=== PATIENT | male | born 1995 | race Hispanic/Latino ===

== ENCOUNTER 2020-10-31 23:51 | Emergency (ER) | payer SELFPAY ==
[2020-11-01 00:40] LABS: Absolute Lymphocytes (CBC) 2.2 K/uL (0.7-4.9); Basophils % 0.4 % (0-1.3); Hematocrit 43.1 % (39.6-49.0); Lymphocytes % 34.2 % (15.3-44.8); MPV 8.8 fL (7.6-11.3); RBC Red Blood Cell Count 4.82 M/uL (4.33-5.43)
[2020-11-01 00:45] LABS: Protime INR 1.15
[2020-11-01 00:56] LABS: ALT/SGPT 16 U/L (12-78); AST/SGOT 14 U/L (15-37); Albumin 4.5 g/dL (3.4-5.0); Alkaline Phosphatase 101 U/L (45-117); BUN Blood Urea Nitrogen 11 mg/dL (7-18); Bicarbonate 25 mmol/L (21-32); Bilirubin Direct 0.1 mg/dL (0-0.2); Bilirubin Total 0.7 mg/dL (0.2-1.0); Glucose Level 99 mg/dL (74-106); Magnesium 2.3 mg/dL (1.8-2.4); NT PRO-BNP 101 pg/mL (<125); Potassium 3.7 mmol/L (3.5-5.1); Protein, Total 8.8 g/dL (6.4-8.2); Sodium Level 139 mmol/L (136-145); Troponin (Emerg Dept Use Only) < 0.02 ng/mL (0.0-0.045)
--- NOTE | 2020-11-01 02:54 | ER ---
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 Pt reports taking "ecstacy" yesterday, denies other illicit drug use or ETOH ingestion. EMS reports "anxious". 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 Coronavirus screen: Client denies travel out of the [place] in the last 14 days. Client presents with at least one sign or symptom that may indicate coronavirus-19. Provider contacted for isolation considerations. Ebola Screen: No symptoms or risks identified at this time. Initial Sepsis Screen: Does the patient meet any 2 criteria? RR > 20 per min. HR > 90 bpm. Yes Does the patient have a suspected source of infection? No. Patient's initial sepsis screen is negative. Risk Assessment: Do you want to hurt yourself or someone else? Patient reports no desire to harm self or others. Onset of symptoms was October 31, 2020 at 23:00. 00:09 Method Of Arrival: EMS ad5 00:09 Acuity: SHERRELL 2 ad5 Triage Assessment: 00:13 General: Appears distressed, uncomfortable, Behavior is cooperative, anxious, restless. ad5 Pain: Complains of pain in anterior aspect of left upper chest. Cardiovascular: Reports chest pain, shortness of breath. Historical: - Allergies: 00:13 No Known Allergies; ad5 - Home Meds: 00:13 unknown blood thinner [Active]; ad5 - PMHx: 00:13 Unknown arterial dx; ad5 - Immunization history:: Adult Immunizations unknown. - Social history:: Smoking status: Patient denies any tobacco usage or history of. Patient uses alcohol, street drugs. Screenin:15 Abuse screen: Denies threats or abuse. Denies injuries from another. Nutritional ad5 screening: No deficits noted. Tuberculosis screening: No symptoms or risk factors identified. Fall Risk None identified. Assessment: 00:14 General: Appears distressed, uncomfortable, Behavior is cooperative, anxious, restless. ad5 Pain: Complains of pain in anterior aspect of left upper chest Pain does not radiate. Pain began suddenly, 1 hour ago. Neuro: Level of Consciousness is awake, alert, obeys commands, Oriented to person, place, time, situation, Appropriate for age [employer] Job Titles are equal bilaterally Moves all extremities. Speech is normal, Facial symmetry appears normal, Intact. Cardiovascular: Reports chest pain, shortness of breath, Heart tones present Capillary refill < 3 seconds JVD is absent Patient's skin is warm and dry. Pulses are all present. Rhythm is regular Chest pain is described as severe, quality is sharp, is located in left anterior chest wall began 1 hour prior to arrival episodes are continuous. Respiratory: Reports shortness of breath cough that is productive, Airway is patent Trachea midline Respiratory effort is even, unlabored, Respiratory pattern is regular, tachypnea. GI: No deficits noted. : No deficits noted. EENT: No deficits noted. Derm: No deficits noted. Skin is pink, warm \\T\\ dry. Musculoskeletal: No deficits noted. 01:13 Reassessment: Patient appears in no apparent distress at this time. Patient and/or ad5 family updated on plan of care and expected duration. Pain level reassessed. Patient is alert, oriented x 3, equal unlabored respirations, skin warm/dry/pink. Pt resting comfortably in stretcher, resp even/unlabored at this time. HRR on CM. NAD noted, will continue to monitor. PD remains at bedside. 02:46 Reassessment: Patient appears in no apparent distress at this time. Patient and/or ad5 family updated on plan of care and expected duration. Pain level reassessed. Patient is alert, oriented x 3, equal unlabored respirations, skin warm/dry/pink. 03:09 Reassessment: Patient appears in no apparent distress at this time. Patient is alert, rr5 oriented x 3, equal unlabored respirations, skin warm/dry/pink. discharge instruction given and explained without complaints made. Vital Signs: 00:09 BP 126 / 86; Pulse 108; Resp 26; Temp 98.7; Pulse Ox 100% on R/A; Weight 74.84 kg; ad5 Height 5 ft. 10 in. (177.80 cm); Pain 7/10; 00:16 Pulse 85; Resp 23 S; ad5 01:14 BP 112 / 54; Pulse 80; Resp 20; Pulse Ox 99% on 2 lpm NC; ad5 02:46 BP 107 / 47; Pulse 68; Resp 16 S; Pulse Ox 99% ; ad5 03:09 BP 110 / 62; Pulse 65; Resp 19; Pulse Ox 98% ; rr5 00:09 Body Mass Index 23.67 (74.84 kg, 177.80 cm) ad5 ED Course: 00:09 Patient arrived in ED. ad5 00:09 Nura Campos is Primary Nurse. ad5 00:12 Triage completed. ad5 00:15 Arm band placed on right wrist. rr5 00:16 Patient has correct armband on for positive identification. Bed in low position. Call ad5 light in reach. Side rails up X2. Adult w/ patient. monitor worker on. Pulse ox on. NIBP on. Sitter at bedside. Door closed. Noise minimized. Warm blanket given. Head of bed lowered. 00:18 Sal Henao MD is Attending Physician. [facility] 00:24 No provider procedures requiring assistance completed. Inserted saline lock: 18 gauge ad5 in right antecubital area, using aseptic technique. Blood collected. 00:42 XRAY Chest (1 view) In Process Unspecified. EDMS 01:00 Oxygen administration via nasal cannula \\T\\ 2L/min. rr5 03:10 IV discontinued, intact, bleeding controlled, No redness/swelling at site. Pressure rr5 dressing applied. 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 Demonstrated understanding of instructions, follow-up care. 03:11 Patient left the ED. 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 EMS reports "anxious" ad5
--- NOTE | 2020-11-01 02:54 | EDPHYS ---
Physician Documentation [facility] Name: Job Umanzor Age: 25 yrs Sex: Male : 1995 Arrival Date: 11/01/2020 Time: 00:09 Bed 4 Private MD: ED Physician Sal Henao HPI: 11/01 01:06 This 25 yrs old Male presents to ER via EMS with complaints of Chest Pain. [facility] 01:07 The patient or guardian reports chest pain that is located primarily in the anterior mh7 chest wall, left. The pain does not radiate. 01:07 Associated signs and symptoms: Pertinent negatives: abdominal pain, cough, diaphoresis, mh7 dizziness, headache, lower extremity pain, lower extremity swelling, lightheadedness, nausea, near syncope, palpitations, recent travel, shortness of breath, syncope, vomiting. The chest pain is described as sharp. Duration: The patient or guardian reports a single episode, that is still ongoing, and unchanged. Modifying factors: The symptoms are alleviated by nothing. the symptoms are aggravated by movement, palpation of area. Severity of pain: At its worst the pain was moderate today, in the emergency department the pain is unchanged. EMS care prior to arrival includes: aspirin, nitroglycerin. Historical: - Allergies: 00:13 No Known Allergies; ad5 - Home Meds: 00:13 unknown blood thinner [Active]; ad5 - PMHx: 00:13 Unknown arterial dx; ad5 - Immunization history:: Adult Immunizations unknown. - Social history:: Smoking status: Patient denies any tobacco usage or history of. Patient uses alcohol, street drugs. ROS: 01:07 Constitutional: Negative for fever, chills, and weight loss, Eyes: Negative for injury, mh7 pain, redness, and discharge, ENT: Negative for injury, pain, and discharge, Neck: Negative for injury, pain, and swelling, Respiratory: Negative for shortness of breath, cough, wheezing, and pleuritic chest pain, Abdomen/GI: Negative for abdominal pain, nausea, vomiting, diarrhea, and constipation, Back: Negative for injury and pain, : Negative for injury, bleeding, discharge, and swelling, MS/Extremity: Negative for injury and deformity, Skin: Negative for injury, rash, and discoloration, Neuro: Negative for headache, weakness, numbness, tingling, and seizure. 01:07 Allergy/Immunology: Negative for hives, rash, and allergies, Endocrine: Negative for neck swelling, polydipsia, polyuria, polyphagia, and marked weight changes, Hematologic/Lymphatic: Negative for swollen nodes, abnormal bleeding, and unusual bruising. 01:07 Psych: Positive for drug dependence. Exam: 01:07 Head/Face: Normocephalic, atraumatic. Eyes: Pupils equal round and reactive to light, mh7 extra-ocular motions intact. Lids and lashes normal. Conjunctiva and sclera are non-icteric and not injected. Cornea within normal limits. Periorbital areas with no swelling, redness, or edema. Neck: Trachea midline, no thyromegaly or masses palpated, and no cervical lymphadenopathy. Supple, full range of motion without nuchal rigidity, or vertebral point tenderness. No Meningismus. 01:07 Cardiovascular: Regular rate and rhythm with a normal S1 and S2. No gallops, murmurs, or rubs. Normal PMI, no JVD. No pulse deficits. Respiratory: Lungs have equal breath sounds bilaterally, clear to auscultation and percussion. No rales, rhonchi or wheezes noted. No increased work of breathing, no retractions or nasal flaring. Abdomen/GI: Soft, non-tender, with normal bowel sounds. No distension or tympany. No guarding or rebound. No evidence of tenderness throughout. Back: No spinal tenderness. No costovertebral tenderness. Full range of motion. Skin: Warm, dry with normal turgor. Normal color with no rashes, no lesions, and no evidence of cellulitis. MS/ Extremity: Pulses equal, no cyanosis. Neurovascular intact. Full, normal range of motion. Neuro: Awake and alert, GCS 15, oriented to person, place, time, and situation. Cranial nerves II-XII grossly intact. Motor strength 5/5 in all extremities. Sensory grossly intact. Cerebellar exam normal. Normal gait. Psych: Awake, alert, with orientation to person, place and time. Behavior, mood, and affect are within normal limits. 01:07 Constitutional: The patient appears in no acute distress, alert, awake, anxious. 01:07 Chest/axilla: Inspection: normal, Palpation: tenderness, that is moderate, of the anterior aspect of left upper chest, that totally reproduces the patient's complaints, Axilla: are normal, Lymph nodes: lymphadenopathy is not appreciated. Vital Signs: 00:09 BP 126 / 86; Pulse 108; Resp 26; Temp 98.7; Pulse Ox 100% on R/A; Weight 74.84 kg; ad5 Height 5 ft. 10 in. (177.80 cm); Pain 7/10; 00:16 Pulse 85; Resp 23 S; ad5 01:14 BP 112 / 54; Pulse 80; Resp 20; Pulse Ox 99% on 2 lpm NC; ad5 02:46 BP 107 / 47; Pulse 68; Resp 16 S; Pulse Ox 99% ; ad5 03:09 BP 110 / 62; Pulse 65; Resp 19; Pulse Ox 98% ; rr5 00:09 Body Mass Index 23.67 (74.84 kg, 177.80 cm) ad5 MDM: 02:50 Differential diagnosis: acute myocardial infarction, acute pericarditis, anxiety, mh7 coronary artery disease chest wall pain, congestive heart failure costochondritis, myocarditis, pericarditis, pneumonia, pneumothorax, Substance Abuse. HEART Score: History: Slightly Suspicious (0), ECG: Normal (0), Age: < or = 45 years (0), Risk Factors: No Risk Factors Known (0), Troponin: < or = 1 x Normal Limit (0), Total Score = 0. Data reviewed: vital signs, nurses notes, EMS record, lab test result(s), cardiac enzymes, CBC, electrolytes, EKG, radiologic studies, plain films. Data interpreted: Pulse oximetry: on room air is 99 %. Interpretation: normal. Counseling: I had a detailed discussion with the patient and/or guardian regarding: the historical points, exam findings, and any diagnostic results supporting the discharge/admit diagnosis, lab results, radiology results, the need for outpatient follow up, to return to the emergency department if symptoms worsen or persist or if there are any questions or concerns that arise at home. 02:53 Patient medically screened. mh7 11/01 00:22 Order name: Basic Metabolic Panel ad5 11/01 00:22 Order name: CBC with Diff ad5 11/01 00:22 Order name: LFT's ad5 11/01 00:22 Order name: Magnesium ad5 11/01 00:22 Order name: NT PRO-BNP; Complete Time: 02:19 ad5 11/01 00:22 Order name: PT-INR; Complete Time: 02: ad5 11/01 00:22 Order name: Troponin (emerg Dept Use Only); Complete Time: 02: ad5 11/01 00:22 Order name: XRAY Chest (1 view) ad5 11/01 00:23 Order name: Basic Metabolic Panel; Complete Time: 02:19 [facility] 11/01 00:23 Order name: CBC with Automated Diff; Complete Time: 02: [facility] 11/01 00:23 Order name: Liver (Hepatic) Function; Complete Time: 02: [facility] 11/01 00:23 Order name: Magnesium; Complete Time: 02: [facility] 11/01 00:28 Order name: CPK; Complete Time: 02: [facility] 11/01 00:22 Order name: EKG; Complete Time: 00: ad5 11/01 00:22 Order name: Cardiac monitoring; Complete Time: 00:24 ad5 11/01 00:22 Order name: EKG - Nurse/Tech; Complete Time: 03: ad5 11/01 00:23 Order name: IV Saline Lock; Complete Time: 00: ad5 11/01 00:23 Order name: Labs collected and sent; Complete Time: 00: ad5 11/01 00:23 Order name: O2 Per Protocol; Complete Time: 03: ad5 11/01 00:23 Order name: O2 Sat Monitoring; Complete Time: 00:24 ad5 Administered Medications: 03:06 Not Given (pt with decreased RR noted by this RN, aware): Ativan (LORazepam) 1 mg ad5 IVP once Disposition: 11/01/20 02:53 Discharged to Home. Impression: Chest pain, unspecified, Substance Abuse. - Condition is Stable. - Discharge Instructions: Hallucinogen Use Disorder-MDMA, Nonspecific Chest Pain, [id number]. - Medication Reconciliation Form, Thank You Letter, Antibiotic Education, Prescription Opioid Use form. - Follow up: Private Physician; When: 1 - 2 days; Reason: Worsening of condition, Recheck today's complaints, Continuance of care, Re-evaluation by your physician. - Problem is new. - Symptoms are resolved. Signatures: Dispatcher [employer] Jovany Saleem RN RN rr5 Sal Henao MD MD mh7 Campos, Nura ad5 Corrections: (The following items were deleted from the chart) 03:11 02:53 11/01/2020 02:53 Discharged to Home. Impression: Chest pain, unspecified; rr5 Substance Abuse. Condition is Stable. Forms are Medication Reconciliation Form, Thank You Letter, Antibiotic Education, Prescription Opioid Use. Follow up: Private Physician; When: 1 - 2 days; Reason: Worsening of condition, Recheck today's complaints, Continuance of care, Re-evaluation by your physician. Problem is new. Symptoms are resolved. mh7
[2020-11-01 03:21] VITALS: TEMP 98.7
[2020-11-01 03:28] VITALS: BP 110/62; O2SAT 98
--- NOTE | 2020-11-01 07:46 | EKG ---
Test Date: 2020-11-01 Test Time: 00:31:08 Rn Team Leader: CLEO MEASUREMENT RESULTS: Intervals: Rate: 86 MD: 150 QRSD: 100 QT: 378 QTc: 452 [place]: P: 65 MD: 150 QRS: 90 T: 75 INTERPRETIVE STATEMENTS: Normal sinus rhythm Rightward axis Incomplete right bundle branch block Borderline ECG No previous ECG available for comparison Electronically Signed On 11-01-20 07:45:59 CDT by Clayton Noble
--- NOTE | 2020-11-01 08:24 | RAD REPORT ---
EXAM DESCRIPTION: Daryl Single View11/01/2020 12:44 am CLINICAL HISTORY: Chest pain COMPARISON: none FINDINGS: The lungs appear clear of acute infiltrate. The heart is normal size IMPRESSION: No acute abnormalities displayed
== END 2020-11-01 03:11 | disposition home or self-care (01) ==
LOC: ER 23:51
DX: R07.9 Chest pain, unspecified (principal); F19.10 Other psychoactive substance abuse, uncomplicated
CPT/HCPCS: 36415; 71045; 80048; 80076; 82550; 83735; 83880; 84484; 85025; 85610; 93005; 99285

== ENCOUNTER → 2023-07-03 | Emergency (ER) | payer SELFPAY ==
[~2023-07-03] MED LIST: LORazepam 2 MG/ML VIAL ONE; NA CHLORIDE 0.9% 1,000 ML ONE; ONDANSETRON 4 MG/2 ML VIAL ONE; POTASSIUM 25 MEQ EFFERV TAB ONE
[2023-07-03 09:42] LABS: Absolute Lymphocytes (CBC) 2.5 K/uL (0.7-4.9); Hematocrit 43.4 % (39.6-49.0); Lymphocytes % 16.3 % (15.3-44.8); MCV 90.6 fL (80-100); MPV 8.6 fL (7.6-11.3); Platelets 327 thou/uL (152-406); RBC Red Blood Cell Count 4.79 M/uL (4.33-5.43)
[2023-07-03 09:51] LABS: AST/SGOT 23 U/L (15-37); Alkaline Phosphatase 102 U/L (45-117); BUN Blood Urea Nitrogen 18 mg/dL (7-18); Bicarbonate 19 mEq/L (21-32); Bilirubin Direct 0.2 mg/dL (0-0.2); Bilirubin Indirect, Calculated 0.3 mg/dL (0.2-0.8); Bilirubin Total 0.5 mg/dL (0.2-1.0); Glomerular Filtration Rate 118 ml/min (=/>90); Glucose Level 83 mg/dL (74-106); Magnesium 2.2 mg/dL (1.6-2.4); Potassium 3.1 mEq/L (3.5-5.1); Protein, Total 8.8 g/dL (6.4-8.2); Sodium Level 138 mEq/L (136-145)
[2023-07-03 09:57] LABS: Troponin High Sensitivity < 3.0 pg/mL (<58.9)
[2023-07-03 10:02] LABS: ALT/SGPT 26 U/L (16-61)
--- NOTE | 2023-07-03 10:10 | RAD REPORT ---
EXAM DESCRIPTION: RAD - Chest Single View - 07/03/2023 10:00 am CLINICAL HISTORY: CHEST PAIN COMPARISON: Chest Single View dated 11/01/2020 FINDINGS: Lines: None. Lungs: No evidence of edema or pneumonia. Pleural: No significant pleural effusions or pneumothorax. Cardiac: The heart size is within normal limits. Mediastinum: Within normal limits. Bones: No acute fractures. Other: None IMPRESSION: No acute cardiopulmonary disease.
--- NOTE | 2023-07-03 10:48 | EDPHYS ---
Physician Documentation [facility] Name: Job Umanzor Age: 28 yrs Sex: Male : 1995 Arrival Date: 07/03/2023 Time: 09:04 Bed 13 Private MD: ED Physician Afshin Glover HPI: 07/03 09:12 This 28 yrs old Male presents to ER via Unassigned with complaints of Anxiety, sb4 Chest Pain, Numbness Of Hand. 09:12 patient states that he drank alcohol last night in excess for the first time in a few sb4 years. he woke up this morning "hungover" also experiencing chest pain and numbness of his hands bilaterally. he denies any drug use. states that he is on blood thinners for "small arteries" but cannot tell me the name. Historical: - Allergies: 09:20 No Known Allergies; hb - Home Meds: 09:20 Unknown blood thinner [Active]; hb - PMHx: 09:20 Unknown arterial dx; hb - PSHx: 09:20 None; hb - Immunization history:: Adult Immunizations up to date. - Social history:: Smoking status: Patient reports the use of cigarette tobacco products. ROS: 09:12 Constitutional: Negative for fever, chills, and weight loss, sb4 09:12 Cardiovascular: Positive for chest pain, 09:12 Abdomen/GI: Positive for nausea and vomiting, 09:12 Neuro: Positive for numbness, 09:12 Psych: Positive for anxiety, 09:12 All other systems are negative, Exam: 09:12 Head/Face: Normocephalic, atraumatic. Eyes: Extra-ocular motions intact. Periorbital sb4 areas with no swelling, redness, or edema. ENT: Mucous membranes moist. Cardiovascular: Regular rate and rhythm with a normal S1 and S2. Respiratory: Lungs have equal breath sounds bilaterally, clear to auscultation and percussion. No rales, rhonchi or wheezes noted. No increased work of breathing, no retractions or nasal flaring. Abdomen/GI: Soft, non-tender, no distension. Skin: Warm, dry with normal turgor. Normal color with no rashes, no lesions, and no evidence of cellulitis. MS/ Extremity: Pulses equal, no cyanosis. Neurovascular intact. Full, normal range of motion. Neuro: Awake and alert, GCS 15, oriented to person, place, time, and situation. Motor strength 5/5 in all extremities. Sensory grossly intact. 09:12 Constitutional: The patient appears alert, awake, anxious, restless, Vital Signs: 09:07 BP 127 / 68; Pulse 88; Resp 19; Temp 97.9(TE); Pulse Ox 100% on R/A; Pain 3/10; hb 09:22 Weight 79.38 kg; Height 5 ft. 6 in. ; mb9 10:08 BP 102 / 61; Pulse 85; Resp 18; Pulse Ox 100% on R/A; mb9 09:22 Body Mass Index 28.25 (79.38 kg, 167.64 cm) mb9 09:07 Pain Scale: Adult hb MDM: 09:06 Patient medically screened. sb4 09:12 Differential diagnosis: anxiety attack, volume depletion, pancreatitis, sb4 gastroenteritis, electrolyte abnormality. 10:47 Data reviewed: vital signs, nurses notes, lab test result(s), EKG, radiologic studies, sb4 and as a result, I will discharge patient. Counseling: I had a detailed discussion with the patient and/or guardian regarding the historical points, exam findings, and any diagnostic results supporting the discharge/admit diagnosis, lab results, radiology results, to return to the emergency department if symptoms worsen or persist or if there are any questions or concerns that arise at home. 07/03 09:11 Order name: Basic Metabolic Panel; Complete Time: 10:05 sb07/03 09:11 Order name: CBC with Diff; Complete Time: 09:51 4 07/03 09:11 Order name: D-Dimer; Complete Time: 09:47 07/03 09:11 Order name: LFT's; Complete Time: 10:05 sb4 07/03 09:11 Order name: Magnesium; Complete Time: 10:05 4 07/03 09:11 Order name: Troponin HS; Complete Time: 10:05 07/03 09:11 Order name: ETOH Level; Complete Time: 10:17 sb4 07/03 09:14 Order name: Lipase; Complete Time: 09:47 sb4 07/03 09:11 Order name: XRAY Chest (1 view); Complete Time: 10:12 4 07/03 09:11 Order name: EKG; Complete Time: 09:07/03 09:11 Order name: Cardiac monitoring; Complete Time: 07/03 09:11 Order name: EKG - Nurse/Tech; Complete Time: 07/03 09:11 Order name: IV Saline Lock; Complete Time: 07/03 09:11 Order name: Labs collected and sent; Complete Time: 07/03 09:11 Order name: O2 Per Protocol; Complete Time: 07/03 09:11 Order name: O2 Sat Monitoring; Complete Time: EC:15 Rate is 87 beats/min. Rhythm is regular, Normal Sinus Rhythm. QRS [place] is Normal. NE sb4 interval is normal at 150 msec. QRS interval is normal at 110 msec. QT interval is normal at 398 msec. No Q waves. T waves are Normal. No ST changes noted. Clinical impression: Normal ECG. Interpreted by me. Reviewed by me. Administered Medications: 09:21 Drug: NS 0.9% IV 1000 ml IV at 1 bolus Per protocol; 1000 mL bolus Route: IV; Rate: 1 mb9 bolus; Site: right forearm; 10:26 Follow up: Response: No adverse reaction; IV Status: Completed infusion mb9 09:21 Drug: Ativan IVP 1 mg IVP once Route: IVP; Site: right forearm; mb9 09:34 Follow up: Response: No adverse reaction mb9 10:08 Drug: NS 0.9% IV 1000 ml IV at 1 bolus Per protocol; 1000 mL bolus Route: IV; Rate: 1 mb9 bolus; Site: right forearm; 10:47 Follow up: Response: No adverse reaction; IV Status: Completed infusion mb9 10:08 Drug: Potassium PO Effervescent Tablet 50 mEq PO once; dissolve in 4 ounces of water or mb9 juice Route: PO; 10:26 Follow up: Response: No adverse reaction mb9 10:50 Drug: Ondansetron IVP 4 mg IVP once; over 2 minutes Route: IVP; Site: right forearm; mb9 10:55 Follow up: Response: No adverse reaction mb9 Disposition: 12:53 Co-signature as Attending Physician, Afshin Glover MD I reviewed the patient's care rt provided by the Advanced Practice Provider and agree with the diagnosis and treatment plan. Disposition Summary: 07/03/23 10:47 Discharge Ordered Notes: Location: Home sb4 Problem: new sb4 Symptoms: have improved sb4 Condition: Stable sb4 Diagnosis - Alcohol use, unspecified sb4 - Anxiety disorder, unspecified sb4 - Hypokalemia sb4 Followup: sb4 - With: Emergency Department - When: As needed - Reason: Trouble breathing, Worsening of condition Discharge Instructions: - Discharge Summary Sheet sb4 - Alcohol Intoxication, Icyg-ja-Alwu sb4 - Hypokalemia sb4 - Managing Anxiety, Adult sb4 Forms: - Medication Reconciliation Form sb4 - Thank You Letter sb4 - Antibiotic Education sb4 - Prescription Opioid Use sb4 - Patient Portal Instructions sb4 - Leadership Thank You Letter sb4 Signatures: Dispatcher [employer] EDNano Diaz, RN RN Qian Hampton PA-C DOTTIE sb4 Kelsey Frazier RN RN mb9 Afshin Glover MD MD rt Corrections: (The following items were deleted from the chart) 09:14 09:12 Differential diagnosis: anxiety attack, volume depletion, pancreatitis sb4 sb4
--- NOTE | 2023-07-03 10:48 | ER ---
Nurse's Notes [facility] Name: Job Umanzor Age: 28 yrs Sex: Male : 1995 Arrival Date: 07/03/2023 Time: 09:04 Bed 13 Private MD: Diagnosis: Alcohol use, unspecified;Anxiety disorder, unspecified;Hypokalemia Presentation: 07/03 09:07 Chief complaint: Patient states: "I drank yesterday and I woke up hungover and nervous hb and my chest hurts and my hands are tingling." Denies substance use. Coronavirus screen: At this time, the client does not indicate any symptoms associated with coronavirus-19. Ebola Screen: No symptoms or risks identified at this time. Initial Sepsis Screen: Does the patient meet any 2 criteria? No. Patient's initial sepsis screen is negative. Does the patient have a suspected source of infection? No. Patient's initial sepsis screen is negative. Risk Assessment: Do you want to hurt yourself or someone else? Patient reports no desire to harm self or others. Onset of symptoms was July 03, 2023. 09:07 Method Of Arrival: Ambulatory hb 09:07 Acuity: SHERRELL 3 hb Historical: - Allergies: 09:20 No Known Allergies; hb - Home Meds: 09:20 Unknown blood thinner [Active]; hb - PMHx: 09:20 Unknown arterial dx; hb - PSHx: 09:20 None; hb - Immunization history:: Adult Immunizations up to date. - Social history:: Smoking status: Patient reports the use of cigarette tobacco products. Screenin:23 [facility] ED Fall Risk Assessment (Adult) History of falling in the last 3 months, mb9 including since admission No falls in past 3 months (0 pts) Confusion or Disorientation No (0 pts) Intoxicated or Sedated No (0 pts) Impaired Gait No (0 pts) Mobility Assist Device Used No (0 pt) Altered Elimination No (0 pt) Score/Fall Risk Level 0 - 2 = Low Risk Oriented to surroundings, Maintained a safe environment, Educated pt \\T\\ family on fall prevention, incl call for assistance when getting out of bed. Abuse screen: Denies threats or abuse. Nutritional screening: No deficits noted. Tuberculosis screening: No symptoms or risk factors identified. Assessment: 09:22 General: Appears uncomfortable, Behavior is anxious. Pain: Complains of pain in chest mb9 Pain does not radiate. Quality of pain is described as pressure, Pain began suddenly. Neuro: Vaughn Agitation-Sedation Scale (RASS): 0 - Alert and Calm Level of Consciousness is awake, alert, obeys commands, Oriented to person, place, time, situation, Appropriate for age. Cardiovascular: Reports chest pain, Heart tones S1 S2 present Patient's skin is warm and dry. Respiratory: Airway is patent Respiratory effort is even, unlabored, Respiratory pattern is regular, symmetrical. GI: Abdomen is flat, non-distended. : No signs and/or symptoms were reported regarding the genitourinary system. EENT: No signs and/or symptoms were reported regarding the EENT system. Derm: Skin is pink, warm \\T\\ dry. Musculoskeletal: Range of motion: intact in all extremities. 10:09 Reassessment: No changes from previously documented assessment. Patient and/or family mb9 updated on plan of care and expected duration. Pain level reassessed. Patient is alert, oriented x 3, equal unlabored respirations, skin warm/dry/pink. 10:55 Reassessment: No changes from previously documented assessment. Patient and/or family mb9 updated on plan of care and expected duration. Pain level reassessed. Patient is alert, oriented x 3, equal unlabored respirations, skin warm/dry/pink. Vital Signs: 09:07 BP 127 / 68; Pulse 88; Resp 19; Temp 97.9(TE); Pulse Ox 100% on R/A; Pain 3/10; hb 09:22 Weight 79.38 kg; Height 5 ft. 6 in. ; mb9 10:08 BP 102 / 61; Pulse 85; Resp 18; Pulse Ox 100% on R/A; mb9 09:22 Body Mass Index 28.25 (79.38 kg, 167.64 cm) mb9 09:07 Pain Scale: Adult hb ED Course: 09:06 Patient arrived in ED. mr 09:06 Qian Arzate PA-C is PHCP. sb4 09:06 Afshin Glover MD is Attending Physician. sb4 09:16 Inserted saline lock: 20 gauge in right forearm, using aseptic technique. Blood hb collected. 09:20 Triage completed. hb 09:20 Breneman, Pastora, RN is Primary Nurse. mb9 09:21 Lipase Sent. mb9 09:21 ETOH Level Sent. mb9 09:21 Basic Metabolic Panel Sent. mb9 09:21 CBC with Diff Sent. mb9 09:21 D-Dimer Sent. mb9 09:21 LFT's Sent. mb9 09:21 Magnesium Sent. mb9 09:21 Troponin HS Sent. mb9 09:21 No provider procedures requiring assistance completed. EKG done, by ED staff, reviewed mb9 by Qian Arzate PA-C. Patient maintains SpO2 saturation greater than 95% on room air. 09:21 Placed in gown. Bed in low position. Call light in reach. Side rails up X 1. Client mb9 placed on continuous cardiac and pulse oximetry monitoring. NIBP monitoring applied. surveillance monitor on. 09:23 Arm band placed on. mb9 10:02 XRAY Chest (1 view) In Process Unspecified. EDMS 10:55 IV discontinued, intact, bleeding controlled, No redness/swelling at site. Pressure mb9 dressing applied. Administered Medications: 09:21 Drug: NS 0.9% IV 1000 ml IV at 1 bolus Per protocol; 1000 mL bolus Route: IV; Rate: 1 mb9 bolus; Site: right forearm; 10:26 Follow up: Response: No adverse reaction; IV Status: Completed infusion mb9 09:21 Drug: Ativan IVP 1 mg IVP once Route: IVP; Site: right forearm; mb9 09:34 Follow up: Response: No adverse reaction mb9 10:08 Drug: NS 0.9% IV 1000 ml IV at 1 bolus Per protocol; 1000 mL bolus Route: IV; Rate: 1 mb9 bolus; Site: right forearm; 10:47 Follow up: Response: No adverse reaction; IV Status: Completed infusion mb9 10:08 Drug: Potassium PO Effervescent Tablet 50 mEq PO once; dissolve in 4 ounces of water or mb9 juice Route: PO; 10:26 Follow up: Response: No adverse reaction mb9 10:50 Drug: Ondansetron IVP 4 mg IVP once; over 2 minutes Route: IVP; Site: right forearm; mb9 10:55 Follow up: Response: No adverse reaction mb9 Medication: 09:24 VIS not applicable for this client. mb9 Outcome: 10:47 Discharge ordered by . sb4 10:56 Discharged to home ambulatory, mb9 10:56 Condition: stable 10:56 Discharge instructions given to patient, Instructed on discharge instructions, follow up and referral plans. Demonstrated understanding of instructions, follow-up care, 10:56 Patient left the ED. [email or web address] Signatures: Dispatcher [employer] EDID VillafuerteKelsey, Reg Reg mr HerveNano, RN RN Qian Hampton, PA-C PASonnyC Kelsey Manuel RN RN mb9 Corrections: (The following items were deleted from the chart) 09:21 09:07 Chief complaint: Patient states: "I drank yesterday and I woke up hungover and hb nervous and my chest hurts and my hands are tingling." hb
[2023-07-03 13:04] VITALS: BP 102/61; TEMP 97.9; O2SAT 100
== END ==
LOC: ER 09:04
DX: F10.90 Alcohol use, unspecified, uncomplicated (principal); E87.6 Hypokalemia; F41.9 Anxiety disorder, unspecified
CPT/HCPCS: 36415; 71045; 80048; 80076; 82077; 83690; 83735; 84484; 85025; 85379; 93005; J2405; J7030

== ENCOUNTER → 2023-08-31 | Emergency (ER) | payer SELFPAY ==
[~2023-08-31] MED LIST changes: +DICYCLOMINE HCL 20 MG/2 ML AMP IM ONE; +HALOPERIDOL LACT 5 MG/ML INJ ONE; -LORazepam 2 MG/ML VIAL ONE; +MORPHINE 2 MG/ML SYR ONE; -POTASSIUM 25 MEQ EFFERV TAB ONE; +PROMETHAZINE INJ 25 MG/ML AMP ONE
[2023-08-31 07:40] LABS: Absolute Lymphocytes (CBC) 1.9 K/uL (0.7-4.9); Absolute Monocytes 0.6 K/uL (0.1-1.3); Absolute Neutrophil 9.3 K/uL (1.8-8.0); Basophils % 0.2 % (0-1.3); Hematocrit 44.9 % (39.6-49.0); Hemoglobin 14.9 g/dL (13.6-17.9); MCH 30.2 pg (27.0-35.0); MCHC 33.1 g/dL (32.0-36.0); MCV 91.1 fL (80-100); MPV 8.3 fL (7.6-11.3); Monocytes % 4.8 % (3.3-12.3); Nucleated Red Blood Cells % 0.1 % (0-0); Platelets 262 thou/uL (152-406); RBC Red Blood Cell Count 4.93 M/uL (4.33-5.43); Red Cell Distribution Width 12.9 % (12.1-15.2)
[2023-08-31 07:58] LABS: Albumin 4.6 g/dL (3.4-5.0); Albumin/Globulin Ratio 1.2 (1.1-1.8); Anion Gap 13.3 mEq/L (5.0-15.0); Bilirubin Total 1.3 mg/dL (0.2-1.0); Globulin 3.9 g/dL (2.3-3.5); Potassium 3.3 mEq/L (3.5-5.1); Protein, Total 8.5 g/dL (6.4-8.2)
[2023-08-31 08:12] LABS: SARS-CoV-2 Antigen CONTROL BLUE LINE VIS/BG OK; SARS-CoV-2 Antigen Rapid Res Negative (Negative)
--- NOTE | 2023-08-31 08:51 | RAD REPORT ---
EXAM DESCRIPTION: CT - Abdomen Pelvis W Contrast - 08/31/2023 7:50 am CLINICAL HISTORY: ABD PAIN, vomiting, fever COMPARISON: No comparisons TECHNIQUE: Thin cut axial CT imaging of the abdomen and pelvis was performed following intravenous a dministration of 100 mL Isovue 300. Multiplanar reformats were generated and reviewed. All CT scans are performed using dose optimization technique as appropriate and may include automated exposure control or mA/KV adjustment according to patient size. FINDINGS: No suspicious findings in the lung bases. The liver, spleen, adrenal glands, and pancreas show no suspicious findings. Gallbladder and biliary tree are also without suspicious finding. Symmetric renal function is seen with no hydronephrosis or suspicious renal mass. Segment of mildly dilated fluid-filled small bowel in the upper abdomen and other nondistended fluid- filled segments of small bowel in the lower abdomen with short-segment air-fluid levels. No other dil ated bowel loops or bowel wall thickening. No free air, free fluid or inflammatory stranding. No augustin ia, mass or bulky lymphadenopathy. The urinary bladder is without significant finding. No suspicious bony findings. IMPRESSION: Nonspecific fluid filling of small bowel non contiguous segments as above, including a m ildly distended upper abdominal segment. Findings may suggest enteritis or diarrheal state.
--- NOTE | 2023-08-31 13:31 | EDPHYS ---
Physician Documentation [facility] Name: Job Umanzor Age: 28 yrs Sex: Male : 1995 Arrival Date: 08/31/2023 Time: 07:07 Bed 10 Private MD: ED Physician Chetan Lan HPI: 08/30 07:28 This 28 yrs old Male presents to ER via Ambulatory with complaints of rn Headache, Nausea, Numbness Of Hand, Abdominal Pain. 08:07 The patient presents to the emergency department with nausea, vomiting, diarrhea, rn abdominal pain. Onset: The symptoms/episode began/occurred yesterday. Possible causes: sick contacts, by family. The symptoms are aggravated by nothing. The symptoms are alleviated by prescription meds. Associated signs and symptoms: Pertinent positives: abdominal pain, diarrhea, nausea, vomiting, Pertinent negatives: fever, GI bleeding. Severity of symptoms: At their worst the symptoms were moderate in the emergency department the symptoms are unchanged. The patient has not experienced similar symptoms in the past. Patient reports nausea/vomiting/diarrhea that began last night. Associated with abdominal pain. Daughter seen recently with viral illness and upset stomach. Took one of her Zofran which improved the vomiting and was able to sleep but symptoms returned this morning.. Historical: - Allergies: 07:25 No Known Allergies; iw - PMHx: 07:25 Unknown arterial dx; iw - Immunization history:: Adult Immunizations up to date. - Family history:: not pertinent. - Social history:: Smoking status: Patient denies any tobacco usage or history of. Patient/guardian denies using alcohol. - Hospitalizations: : No recent hospitalization is reported. ROS: 08:07 Constitutional: Negative for fever, chills, and weight loss, ENT: Negative for injury, rn pain, and discharge, Neck: Negative for injury, pain, and swelling, Cardiovascular: Negative for chest pain, palpitations, and edema, Respiratory: Negative for shortness of breath, cough, wheezing, and pleuritic chest pain, Abdomen/GI: Positive for abdominal pain/vomiting Back: Negative for injury and pain, : Negative for injury, bleeding, discharge, and swelling, MS/Extremity: Negative for injury and deformity, Skin: Negative for injury, rash, and discoloration, Neuro: Positive for generalized weakness Exam: 08:07 Constitutional: This is a well developed, well nourished patient who is awake, alert, rn hyperventilating and very anxious but able to ambulate to triage on his own. Head/Face: Normocephalic, atraumatic. ENT: Dry mucous membranes Cardiovascular: Regular rate and rhythm. No pulse deficits. Respiratory: No increased work of breathing, no retractions or nasal flaring. Abdomen/GI: Soft, mild tenderness left side of abdomen. No masses or rebound MS/ Extremity: Pulses equal, no cyanosis. Neuro: Awake and alert, GCS 15 Vital Signs: 07:23 BP 132 / 74; Pulse 91; Resp 18; Temp 97.1; Pulse Ox 100% ; Weight 77.11 kg; Height 5 iw ft. 7 in. ; 08:37 BP 116 / 67; Pulse 72; Resp 16; Temp 98.4; Pulse Ox 99% on R/A; ds4 09:34 Pulse 57; Resp 18; Pulse Ox 100% on R/A; ld1 12:15 BP 127 / 68; Pulse 62; Resp 18; Pulse Ox 100% on R/A; me1 13:56 Pain 6/10; me1 13:57 BP 131 / 73; Pulse 61; Resp 17; Temp 98.1; Pulse Ox 100% on R/A; Pain 5/10; me1 07:23 Body Mass Index 26.63 (77.11 kg, 170.18 cm) iw 13:56 Pain Scale: Adult me1 13:57 Pain Scale: Adult me1 MDM: 07:12 Patient medically screened. rn 13:25 Differential diagnosis: Nonspecific abd pain, gastritis, pancreatitis, appendicitis, rn diverticulitis, viral gastroenteritis, gastroenteritis. 13:28 Data reviewed: vital signs, nurses notes, lab test result(s), radiologic studies, CT rn scan, and as a result, I will discharge patient. Counseling: I had a detailed discussion with the patient and/or guardian regarding the historical points, exam findings, and any diagnostic results supporting the discharge/admit diagnosis, lab results, radiology results, the need for outpatient follow up, to return to the emergency department if symptoms worsen or persist or if there are any questions or concerns that arise at home. Response to treatment: the patient's symptoms have markedly improved after treatment, and as a result, I will discharge patient. Special discussion: Based on the patient's Hx, exam, and Dx evaluation, there is no indication for emergent surgery or inpatient Tx. It is understood by the patient/guardian that if the Sx's persist or worsen they need to return immediately for re-evaluation. I discussed with the patient/guardian in detail that at this point there is no indication for admission to the hospital. It is understood, however, that if the symptoms persist or worsen the patient needs to return immediately for re-evaluation. ED course: Patient now feeling better, CT consistent with viral enteritis and diarrheal state which makes sense given I just saw his daughter a few days ago for same complaint. No indication for emergent admission. No surgical findings. No further vomiting over the last 2 hours.. 08/30 07:17 Order name: CBC with Diff; Complete Time: 08: iw 08/30 07:17 Order name: CMP; Complete Time: 08:08/30 07:17 Order name: Lipase; Complete Time: 08:08/30 07:17 Order name: SARS RAPID; Complete Time: 08:08/30 07:17 Order name: Flu; Complete Time: 08:08/30 07:17 Order name: CT Abd/Pelvis - IV Contrast Only; Complete Time: 08:59 08/30 07:17 Order name: IV Saline Lock; Complete Time: 07:42 08/30 07:17 Order name: Labs collected and sent; Complete Time: 07:42 iw Administered Medications: 07:42 Drug: NS 0.9% IV 1000 ml IV at 1 bolus Per protocol; 1000 mL bolus Route: IV; Rate: 1 iw bolus; Site: right antecubital; 12:42 Follow up: Response: No adverse reaction; IV Status: Completed infusion; IV Intake: me1 1000ml 07:42 Drug: Ondansetron IVP 4 mg IVP once; over 2 minutes Route: IVP; Site: right antecubital;iw 12:42 Follow up: Response: No adverse reaction; Nausea unchanged me1 07:42 Drug: morphine IVP or IV 2 mg IVP once over 4 mins Route: IVP; Infused Over: 4 mins; iw Site: right antecubital; 12:42 Follow up: Response: No adverse reaction me1 08:26 Drug: Promethazine IVP 12.5 mg IVP once Route: IVP; Site: right antecubital; jl7 12:42 Follow up: Response: No adverse reaction; Nausea unchanged me1 09:04 Drug: Haloperidol IVP 2.5 mg/50 mL 2.5 mg IVP once; Place patient on a monitoring coordinator ld1 Route: IVP; Site: right antecubital; 12:42 Follow up: Response: No adverse reaction; Nausea unchanged me1 11:55 Drug: Promethazine IVP 12.5 mg IVP once Route: IVP; Site: right antecubital; jl7 12:41 Follow up: Response: No adverse reaction; Nausea is decreased me1 11:56 Drug: NS 0.9% IV 1000 ml IV at 1 bolus Per protocol; 1000 mL bolus Route: IV; Rate: 1 me1 bolus; Site: right forearm; 13:17 Follow up: Response: No adverse reaction; IV Status: Completed infusion; IV Intake: me1 1000ml 13:21 Drug: Dicyclomine IM 20 mg IM once Route: IM; Site: left deltoid; me1 13:56 Follow up: Pain 6/10 Adult; Response: No adverse reaction; Pain is decreased me1 Disposition Summary: 08/31/23 13:30 Discharge Ordered Notes: Location: Home rn Problem: new rn Symptoms: have improved rn Condition: Stable rn Diagnosis - Infectious gastroenteritis and colitis, unspecified rn Followup: rn - With: Private Physician - When: As needed - Reason: Recheck today's complaints, Re-evaluation by your physician Discharge Instructions: - Discharge Summary Sheet rn - Viral Gastroenteritis, Adult, [id number] rn Forms: - Medication Reconciliation Form rn - Thank You Letter 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
--- NOTE | 2023-08-31 13:31 | ER ---
Nurse's Notes [facility] Name: Job Umanzor Age: 28 yrs Sex: Male : 1995 Arrival Date: 08/31/2023 Time: 07:07 Bed 10 Private MD: Diagnosis: Infectious gastroenteritis and colitis, unspecified Presentation: 08/30 07:23 Chief complaint: Patient states: abd pain, vomiting , chills, fever since last night, iw daughter had same symptoms. Coronavirus screen: At this time, the client does not indicate any symptoms associated with coronavirus-19. Ebola Screen: Patient negative for fever greater than or equal to 101.5 degrees Fahrenheit, and additional compatible Ebola Virus Disease symptoms Patient denies exposure to infectious person. Patient denies travel to an Ebola-affected area in the 21 days before illness onset. No symptoms or risks identified at this time. Initial Sepsis Screen: Does the patient meet any 2 criteria? No. Patient's initial sepsis screen is negative. Does the patient have a suspected source of infection? No. Patient's initial sepsis screen is negative. Risk Assessment: Do you want to hurt yourself or someone else? Patient reports no desire to harm self or others. Onset of symptoms was August 30, 2023. 07:23 Method Of Arrival: Ambulatory iw 07:23 Acuity: SHERRELL 3 iw Triage Assessment: 12:43 Pain: Also complains of nausea. me1 13:58 Headache History: Denies prior headaches. me1 Historical: - Allergies: 07:25 No Known Allergies; iw - PMHx: 07:25 Unknown arterial dx; iw - Immunization history:: Adult Immunizations up to date. - Family history:: not pertinent. - Social history:: Smoking status: Patient denies any tobacco usage or history of. Patient/guardian denies using alcohol. - Hospitalizations: : No recent hospitalization is reported. Screenin:42 [facility] ED Fall Risk Assessment (Adult) History of falling in the last 3 months, ld1 including since admission No falls in past 3 months (0 pts). Abuse screen: Denies threats or abuse. Denies injuries from another. Nutritional screening: No deficits noted. Tuberculosis screening: No symptoms or risk factors identified. Assessment: 07:42 Reassessment: pt unable to have CT done at this time, still retching , uncomfortable. iw 08:42 General: Appears in no apparent distress. Behavior is cooperative, appropriate for age. ld1 Pain: Complains of pain in abdomen Pain does not radiate. Pain currently is 8 out of 10 on a pain scale. Quality of pain is described as throbbing, Is continuous. Neuro: Level of Consciousness is awake, alert, obeys commands, Oriented to person, place, time, situation. Cardiovascular: Capillary refill < 3 seconds Patient's skin is warm and dry. Respiratory: Airway is patent Respiratory effort is even, unlabored. GI: Abdomen is flat, non-distended, Reports lower abdominal pain, upper abdominal pain, nausea, vomiting. : No signs and/or symptoms were reported regarding the genitourinary system. EENT: No signs and/or symptoms were reported regarding the EENT system. Derm: No signs and/or symptoms reported regarding the dermatologic system. Musculoskeletal: No signs and/or symptoms reported regarding the musculoskeletal system. 09:34 Reassessment: Patient appears in no apparent distress at this time. Patient states ld1 symptoms have improved. 10:35 Reassessment: Pt left from room - not in ED or in ED lobby. No signs of pt d/c IV. ld1 Called [place] [employer] to report pt leaving with IV in arm. Notified ED director, charge nurse and ERP. 10:46 Reassessment: spoke to pt on phone, states he pulled his IV out in parking lot, pt iw states he will come back to ER to complete his workup. 12:38 General: Appears ill, well groomed, well developed, well nourished, Behavior is calm, me1 cooperative, appropriate for age. Pain: Complains of pain in abdomen Pain does not radiate. Pain currently is 8 out of 10 on a pain scale. Quality of pain is described as crampy, Is continuous. Neuro: Level of Consciousness is awake, alert, obeys commands, Oriented to person, place, time, situation. Cardiovascular: Capillary refill < 3 seconds Patient's skin is warm and dry. Respiratory: Airway is patent Respiratory effort is even, unlabored, Respiratory pattern is regular, symmetrical. GI: Abdomen is flat, non-distended, Reports upper abdominal pain, nausea, vomiting. : No signs and/or symptoms were reported regarding the genitourinary system. EENT: No signs and/or symptoms were reported regarding the EENT system. Derm: Skin is intact, is healthy with good turgor, Skin is dry, Skin is pale. Musculoskeletal: No signs and/or symptoms reported regarding the musculoskeletal system. Vital Signs: 07:23 BP 132 / 74; Pulse 91; Resp 18; Temp 97.1; Pulse Ox 100% ; Weight 77.11 kg; Height 5 iw ft. 7 in. ; 08:37 BP 116 / 67; Pulse 72; Resp 16; Temp 98.4; Pulse Ox 99% on R/A; ds4 09:34 Pulse 57; Resp 18; Pulse Ox 100% on R/A; ld1 12:15 BP 127 / 68; Pulse 62; Resp 18; Pulse Ox 100% on R/A; me1 13:56 Pain 6/10; me1 13:57 BP 131 / 73; Pulse 61; Resp 17; Temp 98.1; Pulse Ox 100% on R/A; Pain 5/10; me1 07:23 Body Mass Index 26.63 (77.11 kg, 170.18 cm) iw 13:56 Pain Scale: Adult me1 13:57 Pain Scale: Adult me1 ED Course: 07:08 Patient arrived in ED. jj6 07:12 Chetan Lan MD is Attending Physician. rn 07:25 Triage completed. iw 07:25 Arm band placed on. iw 07:30 Initial lab(s) drawn, by me, sent to lab. Inserted saline lock: 22 gauge in right iw antecubital area, using aseptic technique. Blood collected. 07:32 Jenaine Vazquez, RN is Primary Nurse. iw 07:42 Flu Sent. iw 07:42 SARS RAPID Sent. iw 07:52 CT Abd/Pelvis - IV Contrast Only In Process Unspecified. EDMS 08:42 Patient has correct armband on for positive identification. Placed in gown. Bed in low ld1 position. Call light in reach. Side rails up X2. service center technician on. Pulse ox on. NIBP on. Door closed. Noise minimized. Warm blanket given. 11:11 Inserted saline lock: 20 gauge in right forearm, using aseptic technique. bc6 12:38 Provided Education on: POC. Verbalized understanding. . me1 12:38 Client placed on continuous cardiac and pulse oximetry monitoring. NIBP monitoring me1 applied. Pulse ox on. NIBP on. 12:38 No provider procedures requiring assistance completed. me1 13:58 IV discontinued, intact, bleeding controlled, No redness/swelling at site. Pressure me1 dressing applied. Administered Medications: 07:42 Drug: NS 0.9% IV 1000 ml IV at 1 bolus Per protocol; 1000 mL bolus Route: IV; Rate: 1 iw bolus; Site: right antecubital; 12:42 Follow up: Response: No adverse reaction; IV Status: Completed infusion; IV Intake: me1 1000ml 07:42 Drug: Ondansetron IVP 4 mg IVP once; over 2 minutes Route: IVP; Site: right antecubital;iw 12:42 Follow up: Response: No adverse reaction; Nausea unchanged me1 07:42 Drug: morphine IVP or IV 2 mg IVP once over 4 mins Route: IVP; Infused Over: 4 mins; iw Site: right antecubital; 12:42 Follow up: Response: No adverse reaction me1 08:26 Drug: Promethazine IVP 12.5 mg IVP once Route: IVP; Site: right antecubital; jl7 12:42 Follow up: Response: No adverse reaction; Nausea unchanged me1 09:04 Drug: Haloperidol IVP 2.5 mg/50 mL 2.5 mg IVP once; Place patient on a mill operator helper ld1 Route: IVP; Site: right antecubital; 12:42 Follow up: Response: No adverse reaction; Nausea unchanged me1 11:55 Drug: Promethazine IVP 12.5 mg IVP once Route: IVP; Site: right antecubital; jl7 12:41 Follow up: Response: No adverse reaction; Nausea is decreased me1 11:56 Drug: NS 0.9% IV 1000 ml IV at 1 bolus Per protocol; 1000 mL bolus Route: IV; Rate: 1 me1 bolus; Site: right forearm; 13:17 Follow up: Response: No adverse reaction; IV Status: Completed infusion; IV Intake: me1 1000ml 13:21 Drug: Dicyclomine IM 20 mg IM once Route: IM; Site: left deltoid; me1 13:56 Follow up: Pain 6/10 Adult; Response: No adverse reaction; Pain is decreased me1 Medication: 12:38 VIS not applicable for this client. me1 Intake: 12:42 IV: 1000ml; Total: 1000ml. me1 13:17 IV: 1000ml; Total: 2000ml. me1 Outcome: 13:30 Discharge ordered by . rn 13:58 Discharged to home ambulatory, with significant other, me1 13:58 Condition: stable 13:58 Discharge instructions given to patient, significant other, Instructed on discharge instructions, follow up and referral plans. medication usage, Demonstrated understanding of instructions, follow-up care, medications, Prescriptions given X 2, 13:58 Patient left the ED. me1 Signatures: Dispatcher [employer] EDJeanine Bush, RN RN iw Chetan Lan MD MD rn Swanson, Donovan ds4 Yoselin Spivey RN RN jl7 Celia Delgado RN RN ld1 Ingrid Thakkar6 Heydi Davies6 Vannessa Diggs RN RN me1 Corrections: (The following items were deleted from the chart) 07:26 07:23 Pulse 91bpm; Resp 18bpm; Pulse Ox 100%; 77.11 kg; Height 5 ft. 7 in.; BMI: 26.6; iw iw 08:38 08:37 BP 116 / 67; Pulse 72bpm; Resp 16bpm; Pulse Ox 99% RA; Temp 89.4F; ds4 ds4
[2023-08-31 14:30] VITALS: BP 131/73; TEMP 98.1; O2SAT 100
== END ==
LOC: ER 07:07
DX: A09 Infectious gastroenteritis and colitis, unspecified (principal); Z11.52 Encounter for screening for COVID-19
CPT/HCPCS: 36415; 74177; 80053; 83690; 85025; 87804; 87811; J0500; J1630; J2270; J2405; J2550; J7030; Q9967

== ENCOUNTER 2024-06-02 07:42 | Emergency (ER) | payer SELFPAY ==
[2024-06-02] MEDS ORDERED: MORPHINE 4 MG/ML SYR ONE ×2 (07:58→08:41)
[2024-06-02] MEDS ORDERED: ONDANSETRON 4 MG/2 ML VIAL ONE (07:58)
[2024-06-02] MEDS ORDERED: FAMOTIDINE 20 MG/2 ML VIAL IV ONE (07:59)
[2024-06-02] MEDS ORDERED: NA CHLORIDE 0.9% 1,000 ML ONE (07:59)
[2024-06-02 08:03] LABS: Specific Gravity 1.019 (1.005-1.030); Urine Bilirubin NEGATIVE (Negative); Urine Blood Negative (Negative); Urine Clarity Clear (Clear); Urine Color Light-Yellow (Yellow); Urine Glucose NEGATIVE (Negative); Urine Ketones NEGATIVE (Negative); Urine Microscopic Reflex YN NO UMIC; Urine Nitrite NEGATIVE (Negative); Urine Protein NEGATIVE (Negative); Urine Urobilinogen Normal (Normal); Urine pH 7.5 (5.0-7.0)
[2024-06-02 08:19] LABS: Albumin/Globulin Ratio 1.1 (1.1-1.8); Anion Gap 8.9 mEq/L (5.0-15.0); Bilirubin Total 0.7 mg/dL (0.2-1.0); Globulin 3.5 g/dL (2.3-3.5); Potassium 3.9 mEq/L (3.5-5.1); Protein, Total 7.5 g/dL (6.4-8.2)
[2024-06-02 08:20] LABS: Absolute Eosinophils 0.1 K/uL (0-0.5); Absolute Lymphocytes (CBC) 1.8 K/uL (0.7-4.9); Absolute Monocytes 0.4 K/uL (0.1-1.3); Absolute Neutrophil 3.2 K/uL (1.8-8.0); Basophils % 0.6 % (0-1.3); Hematocrit 41.8 % (39.6-49.0); Lymphocytes % 32.2 % (15.3-44.8); MCH 31.1 pg (27.0-35.0); MCHC 33.5 g/dL (32.0-36.0); MPV 8.4 fL (7.6-11.3); Monocytes % 7.7 % (3.3-12.3); Neutrophils % 57.5 % (41.7-73.7); Platelets 226 thou/uL (152-406); RBC Red Blood Cell Count 4.49 M/uL (4.33-5.43); Red Cell Distribution Width 12.9 % (12.1-15.2)
[2024-06-02] MEDS ORDERED: MAGNES/ALUMIN/SIMET 30ML UCUP ONE (08:41)
[2024-06-02] MEDS ORDERED: LIDOCAINE VISCOUS 2% 10ML ORAL SOLN ONE (08:42)
--- NOTE | 2024-06-02 09:35 | RAD REPORT ---
EXAMINATION: CT Abdomen Pelvis W Contrast CLINICAL INDICATION: Male, 29 years old. ABD PAIN TECHNIQUE: CT abdomen and pelvis was performed, after the administration of IV contrast[facility] Axial, sagittal and coronal reconstructions were obtained. One or more of the following dose reduction techniques were used: Automated exposure control, adjustment of the mA and k V according to patient size, and iterative reconstruction. Unless otherwise specified, incidental findings do not require dedicated imaging follow-up. COMPARISON: 08/31/2023. FINDINGS: LOWER CHEST: The visualized lung bases are clear. LIVER: Normal in size and contour. No focal lesion. BILIARY SYSTEM: No suspicious abnormalities. SPLEEN: Normal size. No focal lesion. PANCREAS: No mass, ductal dilation, or risa-pancreatic fluid. ADRENALS: Normal; no mass. KIDNEYS: Normal size and contour. No hydronephrosis. 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 URINARY BLADDER: Unremarkable. GASTROINTESTINAL TRACT: No evidence of free air, significant intra-abdominal free fluid, bowel obstru ction or abscess. APPENDIX: Normal appendix. LYMPH NODES: No lymphadenopathy. MUSCULOSKELETAL: No acute or suspicious osseous abnormality. ADDITIONAL FINDINGS: None. IMPRESSION: No acute or concerning abnormalities seen in the abdomen or pelvis.
--- NOTE | 2024-06-02 09:42 | EDPHYS ---
Physician Documentation [facility] Name: Job Umanzor Age: 29 yrs Sex: Male : 1995 Arrival Date: 06/02/2024 Time: 07:42 Bed 19 Private MD: ED Physician Bret Stark HPI: 06/02 08:21 This 29 yrs old Male presents to ER via Ambulatory with complaints of maikol Abdominal Pain, Vomiting. 08:21 The patient presents to the emergency department with nausea, vomiting, abdominal pain, maikol of the right upper quadrant and left upper quadrant. Onset: The symptoms/episode began/occurred this morning, yesterday. Possible causes: unknown. The symptoms are aggravated by nothing. The symptoms are alleviated by nothing. Associated signs and symptoms: The patient has no apparent associated signs or symptoms. Severity of symptoms: At their worst the symptoms were moderate in the emergency department the symptoms are unchanged. The patient has not experienced similar symptoms in the past. Historical: - Allergies: 08:00 No Known Allergies; ld1 - Home Meds: 08:00 None [Active]; ld1 - PMHx: 08:00 Unknown arterial dx; ld1 - PSHx: 08:00 None; ld1 - Immunization history:: Adult Immunizations up to date. - Infectious Disease History:: Denies. - Social history:: Smoking status: Patient denies any tobacco usage or history of. ROS: 08:23 Constitutional: Negative for fever, chills, and weight loss, Eyes: Negative for injury, maikol pain, redness, and discharge, ENT: Negative for injury, pain, and discharge, Neck: Negative for injury, pain, and swelling, Cardiovascular: Negative for chest pain, palpitations, and edema, Respiratory: Negative for shortness of breath, cough, wheezing, and pleuritic chest pain, Back: Negative for injury and pain, : Negative for injury, bleeding, discharge, and swelling, MS/Extremity: Negative for injury and deformity, Skin: Negative for injury, rash, and discoloration, Neuro: Negative for headache, weakness, numbness, tingling, and seizure, Psych: Negative for depression, anxiety, suicide ideation, homicidal ideation, and hallucinations, Allergy/Immunology: Negative for hives, rash, and allergies, Endocrine: Negative for neck swelling, polydipsia, polyuria, polyphagia, and marked weight changes, Hematologic/Lymphatic: Negative for swollen nodes, abnormal bleeding, and unusual bruising, 08:23 Abdomen/GI: Positive for abdominal pain, nausea and vomiting, of the right upper quadrant and left upper quadrant, Exam: 08:23 Constitutional: This is a well developed, well nourished patient who is awake, alert, maikol and in no acute distress. Head/Face: Normocephalic, atraumatic. Eyes: Pupils equal round and reactive to light, extra-ocular motions intact. Lids and lashes normal. Conjunctiva and sclera are non-icteric and not injected. Cornea within normal limits. Periorbital areas with no swelling, redness, or edema. ENT: Nares patent. No nasal discharge, no septal abnormalities noted. Tympanic membranes are normal and external auditory canals are clear. Oropharynx with no redness, swelling, or masses, exudates, or evidence of obstruction, uvula midline. Mucous membranes moist. Neck: Trachea midline, no thyromegaly or masses palpated, and no cervical lymphadenopathy. Supple, full range of motion without nuchal rigidity, or vertebral point tenderness. No Meningismus. Chest/axilla: Normal chest wall appearance and motion. Nontender with no deformity. No lesions are appreciated. Cardiovascular: Regular rate and rhythm with a normal S1 and S2. No gallops, murmurs, or rubs. Normal PMI, no JVD. No pulse deficits. Respiratory: Lungs have equal breath sounds bilaterally, clear to auscultation and percussion. No rales, rhonchi or wheezes noted. No increased work of breathing, no retractions or nasal flaring. Back: No spinal tenderness. No costovertebral tenderness. Full range of motion. Skin: Warm, dry with normal turgor. Normal color with no rashes, no lesions, and no evidence of cellulitis. MS/ Extremity: Pulses equal, no cyanosis. Neurovascular intact. Full, normal range of motion., bilateral aka Neuro: Awake and alert, GCS 15, oriented to person, place, time, and situation. Cranial nerves II-XII grossly intact. Motor strength 5/5 in all extremities. Sensory grossly intact. Cerebellar exam normal. Normal gait. Psych: Awake, alert, with orientation to person, place and time. Behavior, mood, and affect are within normal limits. 08:23 Abdomen/GI: Inspection: abdomen appears normal, Bowel sounds: normal, Palpation: mild abdominal tenderness, moderate abdominal tenderness, in the epigastric area, right upper quadrant and left upper quadrant, Liver: no appreciated palpable abnormalities, Hernia: not appreciated, Vital Signs: 07:59 BP 125 / 75; Pulse 60; Resp 18; Temp 98.3(TE); Pulse Ox 99% on R/A; Weight 72.12 kg; ld1 Height 5 ft. 9 in. ; Pain 8/10; 08:30 BP 121 / 72; Pulse 65; Resp 18; Pulse Ox 99% on R/A; Pain 8/10; ss 07:59 Body Mass Index 23.48 (72.12 kg, 175.26 cm) ld1 07:59 Pain Scale: Adult ld1 08:30 Pain Scale: Adult ss MDM: 07:48 Medical Screening Exam initiated maikol 08:23 Differential diagnosis: Nonspecific abd pain, gastritis, cholecystitis, pancreatitis, maikol appendicitis, diverticulitis, viral gastroenteritis, gastroenteritis, bowel obstruction, gastritis, gastroesophageal reflux disease, GI Bleed, Irritable bowel syndrome, non-specific abd pain, pancreatitis, Peptic Ulcer Disease, Peritonitis, Prostatitis, Pyelonephritis. Data reviewed: vital signs, nurses notes, lab test result(s), radiologic studies, CT scan. Consideration of Admission/Observation Escalation of care including admission/observation considered. I considered the following discharge prescriptions or medication management in the emergency department Medications were administered in the Emergency Department. See MAR. Independent interpretation of the following test(s) in the Emergency Department CT Scan: My interpretation is ct ab/pel. Test considered but Not performed: Ultrasound abd us. Historians other than the Patient: Spouse/Significant Other: so . Care significantly affected by the following chronic conditions: arterial disease. 06/02 07:49 Order name: CBC with Diff; Complete Time: 08:29 [facility] 06/02 07:49 Order name: CMP; Complete Time: 08:21 [facility] 06/02 07:49 Order name: Lipase; Complete Time: 08:21 [facility] 06/02 07:49 Order name: Urinalysis w/ reflexes; Complete Time: 08:21 [facility] 06/02 07:49 Order name: CT Abd/Pelvis - IV Contrast Only [facility] 06/02 07:49 Order name: IV Saline Lock; Complete Time: 07:56 [facility] 06/02 07:49 Order name: Labs collected and sent; Complete Time: 07:56 maikol Administered Medications: 08:09 Drug: Famotidine IVP 20 mg IVP once; dilute with 10 mL 0.9% NaCl; give over 2 minutes hb Route: IVP; Site: right antecubital; 08:48 Follow up: Response: No adverse reaction ss 08:09 Drug: Ondansetron IVP 4 mg IVP once; over 2 minutes Route: IVP; Site: right antecubital;hb 08:48 Follow up: Response: No adverse reaction ss 08:09 Drug: morphine IVP or IV 4 mg IVP once over 4 mins Route: IVP; Infused Over: 4 mins; hb Site: right antecubital; 08:48 Follow up: Response: No adverse reaction ss 08:09 Drug: NS 0.9% IV 1000 ml IV at 1 bolus Per protocol; to be given as a bolus over 60 hb minutes Route: IV; Rate: 1 bolus; Site: right antecubital; 08:48 Drug: GI Cocktail without - (Maalox PO 30 ml, Lidocaine Mucous Membrane 2 % 15 ss ml) PO once Route: PO; 08:48 Drug: morphine IVP or IV 4 mg IVP once over 4 mins; VERBAL ORDER PER DR. STARK ss Route: IVP; Infused Over: 4 mins; Site: right antecubital; Disposition Summary: 06/02/24 09:41 Discharge Ordered Notes: Location: Home maikol Problem: new maikol Symptoms: have improved maikol Condition: Stable maikol Diagnosis - Abdominal tenderness maikol - Vomiting maikol - Acute gastritis maikol - Alcohol use, unspecified maikol - Tobacco abuse counseling maikol - Tobacco use maikol Followup: maikol - With: Private Physician - When: 2 - 3 days - Reason: Recheck today's complaints, Continuance of care, Re-evaluation by your physician Followup: maikol - With: Lai Griffith MD - When: 2 - 3 days - Reason: Recheck today's complaints, Re-evaluation by your physician Discharge Instructions: - Discharge Summary Sheet maikol - Abdominal Pain, Adult maikol - Alcohol Use Disorder maikol - Nausea and Vomiting, Adult maikol - Steps to Quit Smoking maikol - Health Risks of Smoking maikol - Nausea and Vomiting, Adult, [id number] maikol - Abdominal Pain, Adult, [id number] maikol Forms: - Medication Reconciliation Form maikol - Antibiotic Education maikol - Prescription Opioid Use maikol - Patient Portal Instructions [facility] - Leadership Thank You Letter [facility] Prescriptions: - ondansetron 4 mg Oral Tablet,disintegrating - take 1 tablet ORAL route every 6-8 hours for 5 days; 20 tablet; Refills: 0, [facility] Product Selection Permitted - Pepcid 20 mg Oral tablet - take 1 tablet ORAL route every 12 hours for 21 days; 42 tablet; Refills: 0, [facility] Product Selection Permitted - dicyclomine 20 mg Oral tablet - take 1 tablet ORAL route 4 times per day; 28 tablet; Refills: 0, Product [facility] Selection Permitted Signatures: Dispatcher [employer] Bret Kaufman MD MD cha Blanchard, Shelby RN RN ss Nano Edgar RN RN Celia Delgado RN RN ld1
--- NOTE | 2024-06-02 09:42 | ER ---
Nurse's Notes [facility] Name: Job Umanzor Age: 29 yrs Sex: Male : 1995 Arrival Date: 06/02/2024 Time: 07:42 Bed 19 Private MD: Diagnosis: Abdominal tenderness;Vomiting;Acute gastritis;Alcohol use, unspecified;Tobacco abuse counseling;Tobacco use Presentation: 06/02 07:59 Chief complaint: Patient states: Left sided abdominal pain X 2-3 days. C/O N/V. ld1 Coronavirus screen: At this time, the client does not indicate any symptoms associated with coronavirus-19. Ebola Screen: No symptoms or risks identified at this time. Initial Sepsis Screen: Does the patient meet any 2 criteria? No. Patient's initial sepsis screen is negative. Does the patient have a suspected source of infection? No. Patient's initial sepsis screen is negative. Risk Assessment: Do you want to hurt yourself or someone else? Patient reports no desire to harm self or others. Onset of symptoms was June 02, 2024. 07:59 Method Of Arrival: Ambulatory ld1 07:59 Acuity: SHERRELL 3 ld1 Triage Assessment: 08:00 General: Appears in no apparent distress. comfortable, Behavior is calm, cooperative, ld1 appropriate for age. Pain: Complains of pain in left upper quadrant and left lower quadrant Pain does not radiate. Pain currently is 8 out of 10 on a pain scale. Quality of pain is described as aching, throbbing, Pain began suddenly. EENT: No signs and/or symptoms were reported regarding the EENT system. Neuro: Level of Consciousness is awake, alert, obeys commands, Oriented to person, place, time, situation. Cardiovascular: Capillary refill < 3 seconds Patient's skin is warm and dry. Respiratory: Airway is patent Respiratory effort is even, unlabored. GI: Abdomen is flat, non-distended, Reports lower abdominal pain, upper abdominal pain, nausea, vomiting. : No signs and/or symptoms were reported regarding the genitourinary system. Derm: No signs and/or symptoms reported regarding the dermatologic system. Musculoskeletal: No signs and/or symptoms reported regarding the musculoskeletal system. Historical: - Allergies: 08:00 No Known Allergies; ld1 - Home Meds: 08:00 None [Active]; ld1 - PMHx: 08:00 Unknown arterial dx; ld1 - PSHx: 08:00 None; ld1 - Immunization history:: Adult Immunizations up to date. - Infectious Disease History:: Denies. - Social history:: Smoking status: Patient denies any tobacco usage or history of. Screenin:03 [facility] ED Fall Risk Assessment (Adult) History of falling in the last 3 months, ld1 including since admission No falls in past 3 months (0 pts) Confusion or Disorientation No (0 pts) Intoxicated or Sedated No (0 pts) Impaired Gait No (0 pts) Mobility Assist Device Used No (0 pt) Altered Elimination No (0 pt) Score/Fall Risk Level 0 - 2 = Low Risk Oriented to surroundings, Maintained a safe environment, Educated pt \T\ family on fall prevention, incl call for assistance when getting out of bed, Assessed \T\ reinforced patient's understanding of fall precautions, Provided non-skid footwear, Hourly rounding (assess needs \T\ fall precautionary measures) done, Used ambulatory aids as needed (educated on \T\ assisted with), Used gait belt as appropriate. Abuse screen: Denies threats or abuse. Denies injuries from another. Nutritional screening: No deficits noted. Tuberculosis screening: No symptoms or risk factors identified. Assessment: 08:03 Reassessment: See triage assessment. ld1 08:30 Reassessment: Pt c/o pain to abd. Notified ERP. See [facility] for orders. ss 09:10 Reassessment: Patient appears in no apparent distress at this time. No changes from ld1 previously documented assessment. Patient and/or family updated on plan of care and expected duration. Pain level reassessed. Patient states symptoms have improved. Vital Signs: 07:59 BP 125 / 75; Pulse 60; Resp 18; Temp 98.3(TE); Pulse Ox 99% on R/A; Weight 72.12 kg; ld1 Height 5 ft. 9 in. ; Pain 8/10; 08:30 BP 121 / 72; Pulse 65; Resp 18; Pulse Ox 99% on R/A; Pain 8/10; ss 07:59 Body Mass Index 23.48 (72.12 kg, 175.26 cm) ld1 07:59 Pain Scale: Adult ld1 08:30 Pain Scale: Adult ED Course: 07:44 Patient arrived in ED. mr 07:48 Bret Stark MD is Attending Physician. maikol 07:49 Celia Delgado, JOSE RAMON is Primary Nurse. ld1 07:56 Urinalysis w/ reflexes Sent. ld1 08:00 Triage completed. ld1 08:00 Arm band placed on right wrist. ld1 08:03 No provider procedures requiring assistance completed. Inserted saline lock: 20 gauge ld1 in right antecubital area, using aseptic technique. Blood collected. Flushed with 10 mL NS. 08:03 Patient has correct armband on for positive identification. Placed in gown. Bed in low ld1 position. Call light in reach. Side rails up X2. air sampling and monitoring on. Pulse ox on. NIBP on. Door closed. Noise minimized. Warm blanket given. 08:24 CT Abd/Pelvis - IV Contrast Only In Process Unspecified. EDMS 09:41 Lai Griffith MD is Referral Physician. maikol 10:08 IV discontinued, intact, bleeding controlled, No redness/swelling at site. ld1 Administered Medications: 08:09 Drug: Famotidine IVP 20 mg IVP once; dilute with 10 mL 0.9% NaCl; give over 2 minutes hb Route: IVP; Site: right antecubital; 08:48 Follow up: Response: No adverse reaction ss 08:09 Drug: Ondansetron IVP 4 mg IVP once; over 2 minutes Route: IVP; Site: right antecubital;hb 08:48 Follow up: Response: No adverse reaction ss 08:09 Drug: morphine IVP or IV 4 mg IVP once over 4 mins Route: IVP; Infused Over: 4 mins; hb Site: right antecubital; 08:48 Follow up: Response: No adverse reaction ss 08:09 Drug: NS 0.9% IV 1000 ml IV at 1 bolus Per protocol; to be given as a bolus over 60 hb minutes Route: IV; Rate: 1 bolus; Site: right antecubital; 08:48 Drug: GI Cocktail without - (Maalox PO 30 ml, Lidocaine Mucous Membrane 2 % 15 ss ml) PO once Route: PO; 08:48 Drug: morphine IVP or IV 4 mg IVP once over 4 mins; VERBAL ORDER PER DR. STARK Route: IVP; Infused Over: 4 mins; Site: right antecubital; Medication: 08:03 VIS not applicable for this client. ld1 Outcome: 09:41 Discharge ordered by . maikol 10:08 Discharged to home ambulatory, with family, ld1 10:08 Condition: stable 10:08 Discharge instructions given to patient, Instructed on discharge instructions, follow up and referral plans. medication usage, Demonstrated understanding of instructions, follow-up care, medications, Prescriptions given X 3, 10:08 Patient left the ED. ld1 Signatures: Dispatcher [employer] EDMN Bret Stark MD MD cha Rivera, Mary, Reg Reg mr Tiana Resendiz, RN RN ss Nano Edgar RN RN Celia Delgado RN RN ld1
[2024-06-02 10:16] VITALS: TEMP 98.3; O2SAT 99
[2024-06-02 10:20] VITALS: BP 121/72
== END 2024-06-02 10:08 | disposition home or self-care (01) ==
LOC: ER 07:42
DX: K29.00 Acute gastritis without bleeding (principal); R11.10 Vomiting, unspecified; F10.90 Alcohol use, unspecified, uncomplicated; Z72.0 Tobacco use; Z71.6 Tobacco abuse counseling
CPT/HCPCS: 36415; 74177; 80053; 81003; 83690; 85025; 96374; 96375; 99285; J2405; J7030; Q9967

== ENCOUNTER 2024-06-22 09:38 | Emergency (ER) | payer SELFPAY ==
[2024-06-22] MEDS ORDERED: LIDOCAINE VISCOUS 2% 10ML ORAL SOLN ONE (09:43)
[2024-06-22] MEDS ORDERED: ONDANSETRON 4 MG/2 ML VIAL ONE (09:43)
[2024-06-22] MEDS ORDERED: MAGNES/ALUMIN/SIMET 30ML UCUP ONE (09:43)
[2024-06-22] MEDS ORDERED: FAMOTIDINE 20 MG/2 ML VIAL IV ONE (09:43)
[2024-06-22] MEDS ORDERED: NA CHLORIDE 0.9% 1,000 ML ONE (09:44)
[2024-06-22 09:53] LABS: Absolute Basophils 0.1 K/uL (0-0.5); Absolute Lymphocytes (CBC) 1.8 K/uL (0.7-4.9); Absolute Monocytes 1.5 K/uL (0.1-1.3); Absolute Neutrophil 21.6 K/uL (1.8-8.0); Basophils % 0.2 % (0-1.3); Hematocrit 47.1 % (39.6-49.0); Hemoglobin 15.9 g/dL (13.6-17.9); Lymphocytes % 7.1 % (15.3-44.8); MCH 30.2 pg (27.0-35.0); MCHC 33.7 g/dL (32.0-36.0); MCV 89.6 fL (80-100); MPV 8.7 fL (7.6-11.3); Monocytes % 6.2 % (3.3-12.3); Neutrophils % 86.5 % (41.7-73.7); Platelets 387 thou/uL (152-406); RBC Red Blood Cell Count 5.25 M/uL (4.33-5.43); Red Cell Distribution Width 12.7 % (12.1-15.2)
[2024-06-22 10:10] LABS: Albumin 5.1 g/dL (3.4-5.0); Albumin/Globulin Ratio 1.2 (1.1-1.8); Anion Gap 19.3 mEq/L (5.0-15.0); Bilirubin Total 0.7 mg/dL (0.2-1.0); Globulin 4.1 g/dL (2.3-3.5); Potassium 3.3 mEq/L (3.5-5.1); Protein, Total 9.2 g/dL (6.4-8.2)
[2024-06-22] MEDS ORDERED: PROMETHAZINE INJ 25 MG/ML AMP ONE (10:25)
[2024-06-22 10:29] LABS: Barbiturates NEGATIVE (NEGATIVE); Benzodiazepines NEGATIVE (NEGATIVE); Cocaine NEGATIVE (NEGATIVE); METHAMPHETAM NEGATIVE (NEGATIVE); Methadone NEGATIVE (NEGATIVE); Opiates NEGATIVE (NEGATIVE); Phencyclidine NEGATIVE (NEGATIVE); THC Cannibis POSITIVE (NEGATIVE)
--- NOTE | 2024-06-22 11:15 | RAD REPORT ---
EXAM: CT CHEST, ABDOMEN AND PELVIS WITH CONTRAST CLINICAL INDICATION: upper abd pain, vomiting, wbc 25 TECHNIQUE: CT chest, abdomen and pelvis was performed, following the administration of contrast, as p er department protocol. Axial, sagittal and coronal reconstructions were obtained. One or more of the following dose reduction techniques were used: Automated exposure control, adjustment of the mA a nd/or kV according to patient size, and/or iterative reconstruction. Unless otherwise specified, incidental findings do not require dedicated imaging follow-up. COMPARISON: 05/25/2024 FINDINGS: LUNGS: No evidence of airspace or interstitial process. No nodules. PLEURA: No pleural effusion. No pneumothorax. MEDIASTINUM AND LYMPH NODES: No mediastinal mass or fluid collection. Normal size mediastinal, hilar, and axillary lymph nodes. OSSEOUS STRUCTURES AND CHEST WALL: Intact. LIVER: The liver demonstrates mild fatty infiltration. No focal lesion or biliary dilatation is seen. Grossly unremarkable gallbladder. PANCREAS: No mass, ductal dilation, or risa-pancreatic fluid. SPLEEN: Normal size. No focal lesion. ADRENALS: Normal; no mass. KIDNEYS: Normal size and contour. No hydronephrosis. URINARY BLADDER: Normal contour. GASTROINTESTINAL TRACT: No bowel obstruction, free air, significant free fluid or abscess. APPENDIX: Normal appendix. LYMPH NODES: No lymphadenopathy. MUSCULOSKELETAL: No acute or suspicious osseous abnormality. OTHER: IMPRESSION: No acute or significant abnormalities seen in the chest, abdomen or pelvis.
--- NOTE | 2024-06-22 11:15 | RAD REPORT ---
EXAMINATION: ONE VIEW CHEST XR CLINICAL INDICATION: hyperventilation TECHNIQUE: Frontal chest projection is submitted. Examination is limited by patient positioning and t echnique. COMPARISON: 07/03/2023 FINDINGS: The lungs are well inflated and clear. The heart is upper limit of normal in size. No displaced fract ures identified. IMPRESSION: No acute intrathoracic abnormalities.
--- NOTE | 2024-06-22 12:08 | EDPHYS ---
Physician Documentation [facility] Name: Job Umanzor Age: 29 yrs Sex: Male : 1995 Arrival Date: 06/22/2024 Time: 09:38 Bed 2 Private MD: ED Physician Chetan Lan HPI: 06/22 09:41 This 29 yrs old Male presents to ER via Unassigned with complaints of rn Abdominal Pain. 09:41 The patient presents with abdominal pain in the epigastric area. Onset: The rn symptoms/episode began/occurred last night. The symptoms do not radiate. Associated signs and symptoms: Pertinent positives: nausea, Pertinent negatives: blood in stools, chest pain, fever, shortness of breath, testicular pain. Modifying factors: The symptoms are alleviated by nothing, the symptoms are aggravated by touching the area. Severity of pain: At its worst the pain was moderate in the emergency department the pain is unchanged. The patient has experienced similar episodes in the past. Patient reports started having upper abdominal pain again last night while in correction. States was drinking and got arrested, taken to correction, he has gastritis and ulcers and is supposed to be taking antacids. He states that they did not give him anything for acid and brought in for evaluation today. Patient states feels identical to previous episodes. No blood in stool. No fever or chills. No chest pain.. Historical: - Allergies: 09:42 No Known Allergies; iw - PMHx: 09:42 Unknown arterial dx; ulcers; iw - PSHx: 09:42 None; iw - Immunization history:: Adult Immunizations not up to date. - Infectious Disease History:: Denies. - Social history:: Smoking status: Patient denies any tobacco usage or history of. - Family history:: not pertinent. - Hospitalizations: : No recent hospitalization is reported. ROS: 09:41 Constitutional: Negative for fever, chills, and weight loss, Cardiovascular: Negative rn for chest pain, palpitations, and edema, Respiratory: Negative for shortness of breath, cough, wheezing, and pleuritic chest pain, Abdomen/GI: Negative for diarrhea, and constipation, Back: Negative for injury and pain, MS/Extremity: Negative for injury and deformity, Skin: Negative for injury, rash, and discoloration, Neuro: Negative for headache, weakness, numbness, tingling, and seizure, Exam: 09:41 Constitutional: This is a well developed, well nourished patient who is awake, alert, rn hyperventilating and seems anxious. 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 Eyes: Normal conjunctiva ENT: Dry mucous membranes Cardiovascular: Regular rate and rhythm. No pulse deficits. Respiratory: Patient hyperventilating, able to assistant track and field coach him down and slow his respiratory rate Abdomen/GI: Soft, mild epigastric tenderness. No rebound or guarding. Negative [place] Skin: Warm, dry MS/ Extremity: Pulses equal, no cyanosis. Neuro: Awake and alert, GCS 15 Vital Signs: 09:41 BP 124 / 70; Pulse 82; Resp 22; Temp 98.1; Pulse Ox 100% on R/A; Weight 72.57 kg; iw Height 5 ft. 9 in. ; Pain 10/10; 10:02 BP 124 / 70; Pulse 64; Resp 12; Pulse Ox 72% on R/A; iw 12:11 BP 107 / 59; Pulse 80; Resp 14; Pulse Ox 95% on R/A; iw 09:41 Body Mass Index 23.63 (72.57 kg, 175.26 cm) iw 09:41 Pain Scale: Adult iw 10:02 pt placed on 5 LNC, up to 100% iw MDM: 09:40 Medical Screening Exam initiated rn 12:06 Differential diagnosis: appendicitis, cholecystitis, Cholelithiasis, diverticulitis, rn gastritis, gastroesophageal reflux disease, non-specific abd pain, pancreatitis, Peptic Ulcer Disease, Perf. Duodenal Ulcer, Perf. Gastric Ulcer. Data reviewed: vital signs, nurses notes, lab test result(s), radiologic studies, CT scan, and as a result, I will discharge patient. Counseling: I had a detailed discussion with the patient and/or guardian regarding the historical points, exam findings, and any diagnostic results supporting the discharge/admit diagnosis, lab results, radiology results, the need for outpatient follow up, to return to the emergency department if symptoms worsen or persist or if there are any questions or concerns that arise at home. Response to treatment: the patient's symptoms have markedly improved after treatment, and as a result, I will discharge patient. Special discussion: Based on the patient's Hx, exam, and Dx evaluation, there is no indication for emergent surgery or inpatient Tx. It is understood by the patient/guardian that if the Sx's persist or worsen they need to return immediately for re-evaluation. I discussed with the patient/guardian in detail that at this point there is no indication for admission to the hospital. It is understood, however, that if the symptoms persist or worsen the patient needs to return immediately for re-evaluation. ED course: No acute findings and workup today. Patient resting and feels much better. CT chest abdomen pelvis negative for acute finding. I have personally reviewed all of the results, including but not limited to blood tests and imaging deemed necessary to safely discharge this patient at this time. All results given to and printed out for patient. I personally went over all the results with the patient and answered all questions. Patient will follow-up with PCP and or specialist as discussed. Return precautions given and understood.. 06/22 09:41 Order name: CBC with Diff rn 06/22 09:41 Order name: CMP; Complete Time: 10:25 rn 06/22 09:41 Order name: Lipase; Complete Time: 10:25 rn 06/22 09:59 Order name: Urine Drug Screen; Complete Time: 10:31 rn 06/22 12:24 Order name: CBC Smear Scan EDMI 06/22 09:59 Order name: XRAY Chest (1 view); Complete Time: 11:19 rn 06/22 10:35 Order name: Chest Abdomen Pelvis W Cont; Complete Time: 11:19 EDMI 06/22 09:41 Order name: IV Saline Lock; Complete Time: 09:41 rn 06/22 09:41 Order name: Labs collected and sent; Complete Time: 09:48 rn Administered Medications: :48 Drug: Famotidine IVP 20 mg IVP once; dilute with 10 mL 0.9% NaCl; give over 2 minutes aa5 Route: IVP; Site: right antecubital; 10:10 Follow up: Response: No adverse reaction; Pain is decreased iw :48 Drug: NS 0.9% IV 1000 ml IV at 1 bolus Per protocol; to be given as a bolus over 60 aa5 minutes Route: IV; Rate: 1 bolus; Site: right antecubital; 11:00 Follow up: IV Status: Completed infusion iw :48 Drug: GI Cocktail without - (Maalox PO 30 ml, Lidocaine Mucous Membrane 2 % 15 aa5 ml) PO once Route: PO; 09:49 Drug: Ondansetron IVP 4 mg IVP once; over 2 minutes Route: IVP; Site: right antecubital;aa5 10:10 Follow up: Response: No adverse reaction iw 10:28 Drug: Promethazine IVP 12.5 mg IVP once Route: IVP; Site: right antecubital; iw 11:20 Follow up: Response: No adverse reaction; Pain is decreased iw Disposition Summary: 06/22/24 12:07 Discharge Ordered Notes: Location: Home rn Problem: new rn Symptoms: have improved rn Condition: Stable rn Diagnosis - Upper abdominal pain, unspecified rn - Acute gastritis without bleeding rn Followup: rn - With: Private Physician - When: As needed - Reason: Recheck today's complaints, Re-evaluation by your physician Discharge Instructions: - Discharge Summary Sheet rn - Abdominal Pain, Adult rn - Gastritis, Adult rn Forms: - Medication Reconciliation Form rn - 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 EDMS EDMS 09:41 09:41 COMPREHENSIVE METABOLIC PANEL+C.LAB.BRZ ordered. EDMS EDMS 09:41 09:41 LIPASE+C.LAB.BRZ ordered. EDMS EDMS 09:59 09:59 Chest Single View+RAD.RAD.BRZ ordered. EDMS EDMS 10:35 09:59 Abdomen Pelvis W Con+CT.RAD.BRZ ordered. EDMS EDMS
--- NOTE | 2024-06-22 12:08 | ER ---
Nurse's Notes [facility] Name: Job Umanzor Age: 29 yrs Sex: Male : 1995 Arrival Date: 06/22/2024 Time: 09:38 Bed 2 Private MD: Diagnosis: Upper abdominal pain, unspecified;Acute gastritis without bleeding Presentation: 06/22 09:41 Chief complaint: EMS states: upper abd pain and vomiting since last night, hx of iw ulcers. Coronavirus screen: At this time, the client does not indicate any symptoms associated with coronavirus-19. Ebola Screen: No symptoms or risks identified at this time. Initial Sepsis Screen: Does the patient meet any 2 criteria? No. Patient's initial sepsis screen is negative. Does the patient have a suspected source of infection? No. Patient's initial sepsis screen is negative. Risk Assessment: Do you want to hurt yourself or someone else? Patient reports no desire to harm self or others. Onset of symptoms was June 21, 2024. 09:41 Method Of Arrival: EMS: [facility] iw 09:41 Acuity: SHERRELL 3 iw Historical: - Allergies: 09:42 No Known Allergies; iw - PMHx: 09:42 Unknown arterial dx; ulcers; iw - PSHx: 09:42 None; iw - Immunization history:: Adult Immunizations not up to date. - Infectious Disease History:: Denies. - Social history:: Smoking status: Patient denies any tobacco usage or history of. - Family history:: not pertinent. - Hospitalizations: : No recent hospitalization is reported. Screenin:47 [facility] ED Fall Risk Assessment (Adult) History of falling in the last 3 months, iw including since admission No falls in past 3 months (0 pts) Confusion or Disorientation No (0 pts) Intoxicated or Sedated No (0 pts) Impaired Gait No (0 pts) Mobility Assist Device Used No (0 pt) Altered Elimination No (0 pt) Score/Fall Risk Level 0 - 2 = Low Risk Oriented to surroundings, Maintained a safe environment. Abuse screen: Denies threats or abuse. Denies injuries from another. Nutritional screening: No deficits noted. Tuberculosis screening: No symptoms or risk factors identified. Assessment: 09:46 General: Appears uncomfortable, Behavior is anxious. Pain: Complains of pain in abdomen iw Pain radiates to chest. Neuro: Level of Consciousness is awake, alert, obeys commands, Oriented to person, place, time, situation, Moves all extremities. Full function. Cardiovascular: Patient's skin is warm and dry. Respiratory: Respiratory effort is even, unlabored, Respiratory pattern is symmetrical, tachypnea. GI: Abdomen is non-distended, Abd is soft X 4 quads Reports upper abdominal pain, nausea, vomiting. Derm: Skin is intact, is healthy with good turgor. Musculoskeletal: Range of motion: intact in all extremities. 10:01 Reassessment: pr appears drowsy , Dr. Lan notified, pt )2 dropped into low 70's, iw placed on 5 L NC. 10:07 Reassessment: Pt was able to urinate into urinal, pt is awake and alert now. . aa5 10:27 Reassessment: pt hyperventilating, c/o abd pain and nausea, dry heaving, requesting iw nausea medicine prior to ct , Dr. Lan notified. 11:59 Reassessment: pt has been of O2 for one hour, maintaining SPO2 above 95% on RA, pt iw sleeping, awakens easily to verbal stimuli. Vital Signs: 09:41 BP 124 / 70; Pulse 82; Resp 22; Temp 98.1; Pulse Ox 100% on R/A; Weight 72.57 kg; iw Height 5 ft. 9 in. ; Pain 10/10; 10:02 BP 124 / 70; Pulse 64; Resp 12; Pulse Ox 72% on R/A; iw 12:11 BP 107 / 59; Pulse 80; Resp 14; Pulse Ox 95% on R/A; iw 09:41 Body Mass Index 23.63 (72.57 kg, 175.26 cm) iw 09:41 Pain Scale: Adult iw 10:02 pt placed on 5 LNC, up to 100% iw ED Course: 09:40 Patient arrived in ED. rn 09:40 Chetan Lan MD is Attending Physician. rn 09:41 Inserted saline lock: 20 gauge in right antecubital area, using aseptic technique. aa5 Blood collected. Flushed with 10 mL NS. 09:42 Triage completed. iw 09:42 Jeanine Vazquez, RN is Primary Nurse. iw 09:42 Arm band placed on. iw 10:36 Chest Abdomen Pelvis W Cont In Process Unspecified. EDMS 10:37 XRAY Chest (1 view) In Process Unspecified. EDMS 12:25 Patient has correct armband on for positive identification. Provided Education on: . iw 12:26 No provider procedures requiring assistance completed. IV discontinued, intact, iw bleeding controlled, No redness/swelling at site. Pressure dressing applied. Administered Medications: 09:48 Drug: Famotidine IVP 20 mg IVP once; dilute with 10 mL 0.9% NaCl; give over 2 minutes aa5 Route: IVP; Site: right antecubital; 10:10 Follow up: Response: No adverse reaction; Pain is decreased iw 09:48 Drug: NS 0.9% IV 1000 ml IV at 1 bolus Per protocol; to be given as a bolus over 60 aa5 minutes Route: IV; Rate: 1 bolus; Site: right antecubital; 11:00 Follow up: IV Status: Completed infusion iw 09:48 Drug: GI Cocktail without - (Maalox PO 30 ml, Lidocaine Mucous Membrane 2 % 15 aa5 ml) PO once Route: PO; 09:49 Drug: Ondansetron IVP 4 mg IVP once; over 2 minutes Route: IVP; Site: right antecubital;aa5 10:10 Follow up: Response: No adverse reaction iw 10:28 Drug: Promethazine IVP 12.5 mg IVP once Route: IVP; Site: right antecubital; iw 11:20 Follow up: Response: No adverse reaction; Pain is decreased iw Medication: 09:48 VIS not applicable for this client. iw Outcome: 12:07 Discharge ordered by . rn 12:25 Discharged to home ambulatory, iw 12:25 Condition: good 12:25 Discharge instructions given to patient, Instructed on discharge instructions, follow up and referral plans. medication usage, Demonstrated understanding of instructions, follow-up care, medications, Prescriptions given X 1, 12:26 Patient left the ED. iw Signatures: Dispatcher [employer] Jeanine Ruby RN RN iw Chetan Lan MD MD rn Calderon, Audri, RN RN aa5
[2024-06-22 12:22] LABS: Blood Morphology Comment NOT SEEN (NOT SEEN); Platelet Estimate ADEQ; White Blood Cell Scan OK (OK)
[2024-06-22 12:30] VITALS: TEMP 98.1
[2024-06-22 12:32] VITALS: BP 107/59; O2SAT 95
== END 2024-06-22 12:26 | disposition home or self-care (01) ==
LOC: ER 09:38
DX: K29.00 Acute gastritis without bleeding (principal)
CPT/HCPCS: 36415; 71045; 71260; 74177; 80053; 80307; 83690; 85025; 96361; 96374; 96375; 99284; J2405; J2550; J7030; Q9967